=== PATIENT | female | born 1995 | race African-American/Black ===

== ENCOUNTER 2019-03-31 21:08 | Inpatient (IN) | payer OTHER ==
[~2019-03-31] VITALS: Ht 167.6 cm; Wt 104.3 kg
[~2019-03-31 21:08] MED LIST: PRENATABS FA T1 EACH
== END 2019-04-01 11:20 | disposition home or self-care (01) | DRG 833 ==
LOC: LDR 21:08
PROVIDERS: ADMIT Obstetrics & Gynecology Maternal & Fetal Medicine
PROC: 4A1HXCZ Monitoring of Products of Conception, Cardiac Rate, External Approach (ICD-10-PCS; principal; 2019-03-31)
DX: O60.03 Preterm labor without delivery, third trimester (principal); Z34.83 Encounter for supervision of other normal pregnancy, third trimester

== ENCOUNTER 2020-07-28 11:41 | Emergency (ER) | payer OTHER ==
[~2020-07-28] VITALS: Ht 165.1 cm; Wt 86.2 kg
== END 2020-07-28 19:35 | disposition home or self-care (01) ==
LOC: ER 11:41
DX: N99.89 Other postprocedural complications and disorders of genitourinary system (principal); N39.0 Urinary tract infection, site not specified; R10.2 Pelvic and perineal pain; Z03.818 Encounter for observation for suspected exposure to other biological agents ruled out
CPT/HCPCS: 74177; Q9965